=== PATIENT | female | born 1950 | race Caucasian/White ===

== ENCOUNTER 2019-12-25 12:07 | Outpatient (CLI) | payer OTHER, SELFPAY ==
[2019-12-25 12:26] LABS: Basophils Absolute Auto 0.06 K/mm3 (0.00-0.10); Basophils Percent Auto 0.8 % (0.0-1.0); Eosinophils Absolute Auto 0.16 K/mm3 (0.02-0.50); Eosinophils Percent Auto 2.1 % (1.0-6.0); Hematocrit 41.2 % (35.0-42.0); Hemoglobin 13.7 g/dL (11.7-13.8); Immature Granulocyte Absolute 0.02 K/mm3 (0.00-0.00); Immature Granulocyte Percent A 0.3 % (0.0-0.0); Lymphocytes Absolute Auto 2.23 K/mm3 (1.10-4.50); Lymphocytes Percent Auto 28.9 % (18.0-42.0); Mean Corpuscular HGB Conc 33.3 g/dL (32.0-36.0); Mean Corpuscular Hemoglobin 29.8 pg (27.0-31.0); Mean Corpuscular Volume 89.6 fL (78.0-102.0); Mean Platelet Volume 9.2 fl (9.2-11.8); Monocytes Absolute Auto 0.52 K/mm3 (0.10-0.90); Monocytes Percent Auto 6.7 % (2.0-11.0); Neutrophils Absolute Auto 4.7 K/mm3 (1.7-7.2); Neutrophils Percent Auto 61.2 % (50.0-70.0); Platelet Count Result 243 K/mm3 (150-420); Red Cell Distribution Width 13.4 % (11.6-14.4); White Blood Count 7.7 K/mm3 (4.8-10.8)
[2019-12-25 13:34] LABS: Alanine Aminotransferase 32 U/L (14-59); Albumin Level 4.2 g/dL (3.4-5.0); Alkaline Phosphatase 72 U/L (46-116); Anion Gap 15.1 mmol/L (7-16); Aspartate Amino Transferase 20 U/L (15-37); Bilirubin,Total 0.3 mg/dL (0.00-1.00); Blood Urea Nitrogen 17 mg/dL (7-18); Calcium 9.6 mg/dL (8.5-10.1); Carbon Dioxide 26 mmol/L (21-32); Chloride 104 mmol/L (98-108); Cholesterol 278 mg/dL (0-200); Estimated Glomerular Filt Rate > 60; Glucose 93 mg/dL (70-99); HDL Direct 50 mg/dL (40-60); LDL Cholesterol Calculated 192 mg/dL (<130); Osmolality Calculated 293 mOsm/kg (285-295); Potassium 4.1 mmol/L (3.5-5.1); Sodium 141 mmol/L (136-145); Total Protein 7.8 g/dL (6.4-8.2); Triglycerides 181 mg/dL (0-150)
[2019-12-25 13:38] LABS: Thyroid Stimulating Hormone Reflex 2.09 u/IU/mL (0.36-3.74)
== END 2019-12-25 12:08 | disposition home or self-care (01) ==
LOC: CHSLAB 12:12
PROVIDERS: PCP Family Medicine; Visit Provider Family Medicine
DX: E66.9 Obesity, unspecified (principal); Z00.00 Encounter for general adult medical examination without abnormal findings
CPT/HCPCS: 36415; 80053; 80061; 84443; 85025

== ENCOUNTER 2019-12-28 09:44 | Outpatient (CLI) | payer OTHER, SELFPAY ==
--- NOTE | ~2019-12-28 | XR_ITS ---
EXAMINATION: XR elbow RT min 3V DATE: 12/28/2019 10:05 INDICATION: Right elbow pain post pulling injury TECHNIQUE: Anteroposterior, two oblique and lateral views of the right elbow were obtained. COMPARISON: None. FINDINGS: Alignment is normal. No fracture or joint effusion. 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 Soft tissues are unremarkable. IMPRESSION: 1. Mild osteoarthritis at the right elbow. No right elbow joint effusion or acute osseous abnormality . Reviewed, dictated and finalized at location A. IMPRESSION: 1. Mild osteoarthritis at the right elbow. No right elbow joint effusion or acu te osseous abnormality.
== END 2019-12-28 09:45 | disposition home or self-care (01) ==
PROVIDERS: PCP Nurse Practitioner Family; Visit Provider Nurse Practitioner Family
DX: M25.521 Pain in right elbow (principal)
CPT/HCPCS: 73080

== ENCOUNTER 2020-01-19 13:38 | Outpatient (CLI) | payer OTHER, SELFPAY ==
--- NOTE | ~2020-01-19 | MR_ITS ---
EXAMINATION: MR elbow RT wo con DATE: 01/19/2020 16:30 INDICATION: Right elbow pain TECHNIQUE: Magnetic resonance imaging (MRI) of the right elbow was performed without intravenous cont rast. Sequences included coronal, axial, and sagittal PD-weighted FS FSE and coronal, axial, and sagi ttal PD-weighted FSE. COMPARISON: None FINDINGS: Osseous/other: Normal alignment. Normal marrow signal with no marrow edema, fracture, osteochondral lesion or abnor mal marrow replacing process. Tendons: Triceps, biceps brachii and brachialis tendons are normal. Common flexor tendon wad is normal. Mild tendinopathy and partial-thickness tear along the deep margin of the lateral epicondylar origin of th e common extensor tendon wad. Ligaments: There is a tear along the humeral side of the radial collateral ligament. The lateral ulnar collatera l and annular ligament components of the lateral collateral ligament complex remain intact. The media l collateral ligament plexus is normal. Cubital tunnel: Cubital tunnel is unremarkable with normal signal and caliber of the ulnar nerve. Fluid: Physiologic amount of fluid the elbow joint. IMPRESSION: 1. Tear of the radial collateral ligament component of the lateral collateral ligament complex. 2. Mild tendinopathy and mild partial-thickness tear along the deep margin of the lateral epicondylar origin of the common extensor tendon wad. Reviewed, dictated and finalized at location A. IMPRESSION: 1. Tear of the radial collateral ligament component of the lateral collateral l igament complex. 2. Mild tendinopathy and mild partial-thickness tear along the deep margin of t he lateral epicondylar origin of the common extensor tendon wad.
== END 2020-01-19 13:39 | disposition home or self-care (01) ==
LOC: ANHIMG 13:44
PROVIDERS: PCP Nurse Practitioner Family; Visit Provider Nurse Practitioner Family
DX: M25.521 Pain in right elbow (principal); S53.431A Radial collateral ligament sprain of right elbow, initial encounter; M77.11 Lateral epicondylitis, right elbow
CPT/HCPCS: 73221

== ENCOUNTER 2020-02-09 09:03 | Outpatient (RCR) | payer OTHER, SELFPAY ==
--- NOTE | 2020-02-09 10:09 | OTOPEVAL ---
Thank you for referring Iliana Palm to [facility]. Please review, sign, date and return this plan of care [facility]. I agree with and certify that the following plan of care is medically necessary. Referring Physician Date Admitting Provider: Attending Provider: Taniya Ibrahim NP Referring Provider: *OT Outpatient Evaluation Start: 02/09/20 08:13 Freq: Status: Active Protocol: Document 02/09/20 08:43 [facility] [place] (Rec: 02/09/20 10:09 [facility] [id number]) Therapy Assessment Status Assessment Status Assessment Status Evaluation Outpatient Past Medical History Past Medical History No Past Medical/Surgical History Patient/Family Denies Significant Past Medical/ Surgical History Evaluation Information Problem Diagnosis R elbow pain, decreased ROM & pain Onset 12/14/19 Cause R ligament and tendon tear Subjective Information Patient reports that she tore Query Text:As Reported By Patient/ a ligament and tendon in her R Family elbow on 12/14/19 when she was [place]. Patient reports that she had an X-ray and an MRI. Patient reports significant pain in the R arm. Patient reports that she is unable to sleep in her bed for the last 8-9 weeks and is sleeping in her recliner resulting in back and shoulder pain. Patient reports that it is very difficult to perform household duties, including cleaning, etc. 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 She is able to perform self care tasks with significant pain. Patient states, I am able to move and use my arm but it just hurts. Patient feels as if there has been no improvements with pain from the initial injury. Patient arrives to OT holding onto a pillow at her side with elbow bent at 90 degrees. Quick DASH score: 77.3% Diagnostic Tests X-Rays For This Problem
--- NOTE | 2020-02-10 07:32 | OTOPEVAL ---
Thank you for referring Iliana Palm to [facility]. Please review, sign, date and return this plan of care [facility]. I agree with and certify that the following plan of care is medically necessary. Referring Physician Date Admitting Provider: Attending Provider: Taniya Ibrahim NP Referring Provider: *OT Outpatient Evaluation Start: 02/09/20 08:13 Freq: Status: Active Protocol: Document 02/09/20 08:43 [facility] [place] (Rec: 02/09/20 10:09 [facility] [place] [id number]) Therapy Assessment Status Assessment Status Assessment Status Evaluation Outpatient Past Medical History Past Medical History No Past Medical/Surgical History Patient/Family Denies Significant Past Medical/ Surgical History Evaluation Information Problem Diagnosis R elbow pain, decreased ROM & pain Onset 12/14/19 Cause R ligament and tendon tear Subjective Information Patient reports that she tore Query Text:As Reported By Patient/ a ligament and tendon in her R Family elbow on 12/14/19 when she was opening a large gate on her [place]. Patient reports that she had an X-ray and an MRI. Patient reports significant pain in the R arm. Patient reports that she is unable to sleep in her bed for the last 8-9 weeks and is sleeping in her recliner resulting in back and shoulder pain. Patient reports that it is very difficult to perform household duties, including cleaning, etc. 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 She is able to perform self care tasks with significant pain. Patient states, I am able to move and use my arm but it just hurts. Patient feels as if there has been no improvements with pain from the initial injury. Patient arrives to OT holding onto a pillow at her side with elbow bent at 90 degrees. Quick DASH score: 77.3% Diagnostic Tests X-Rays For This Problem
== END 2020-07-11 23:59 | disposition home or self-care (01) ==
LOC: CHSOT 09:03
PROVIDERS: PCP Nurse Practitioner Family; Visit Provider Nurse Practitioner Family
DX: S46.911A Strain of unspecified muscle, fascia and tendon at shoulder and upper arm level, right arm, initial encounter (principal)
CPT/HCPCS: 97014; 97035; 97110; 97140; 97165; 97542; G0283

== ENCOUNTER 2024-08-17 12:00 | Outpatient (CLI) | payer OTHER, SELFPAY ==
[2024-08-17 12:24] LABS: Basophils Absolute Auto 0.05 K/mm3 (0.00-0.10); Basophils Percent Auto 0.7 % (0.0-1.0); Eosinophils Absolute Auto 0.08 K/mm3 (0.02-0.50); Eosinophils Percent Auto 1.2 % (1.0-6.0); Hematocrit 39.6 % (35.0-42.0); Immature Granulocyte Absolute 0.03 K/mm3 (0.00-0.00); Immature Granulocyte Percent A 0.4 % (0.0-0.0); Lymphocytes Absolute Auto 1.93 K/mm3 (1.10-4.50); Lymphocytes Percent Auto 28.6 % (18.0-42.0); Mean Corpuscular HGB Conc 32.8 g/dL (32-36); Mean Corpuscular Hemoglobin 29.1 pg (27.0-31.0); Mean Corpuscular Volume 88.6 fL (78.0-102.0); Mean Platelet Volume 8.7 fl (9.2-11.8); Monocytes Absolute Auto 0.44 K/mm3 (0.10-0.90); Monocytes Percent Auto 6.5 % (2.0-11.0); Neutrophils Absolute Auto 4.23 K/mm3 (1.70-7.20); Neutrophils Percent Auto 62.6 % (50.0-70.0); Platelet Count Result 246 K/mm3 (150-420); Red Blood Count 4.47 M/mm3 (4.20-5.40); Red Cell Distribution Width 13.4 % (11.6-14.4); White Blood Count 6.8 K/mm3 (4.8-10.8)
[2024-08-17 12:34] LABS: Add Urine Microscopic? YES; Appearance Urine Clear (Clear); Bilirubin Urine Negative (Negative); Blood Urine Negative (Negative); Color Urine Light Yellow (Yellow); Glucose Urine UA Negative (Negative); Ketones Urine Negative (Negative); Leukocyte Esterase Ur Trace LEU/UL (Negative); Nitrate Urine Negative (Negative); Protein Urine Negative (Negative); Specific Grav Ur <= 1.005 (1.010-1.020); Urobilinogen Urine 0.2 mg/dL (0.2-1.0); pH Urine 5.5 (5.0-8.0)
--- OUTSIDE RECORDS SUMMARY | 2024-08-17 12:47 | XMS_ITS | Clinical Summary ---
Author Organization [facility] Address [address] [place] [address]. [place], [place] [id number] [place] [id number] Care Team Providers Care [employer] Developer Name Role Phone Unavailable Primary Care Provider Unavailabl e Social History Tobacco Use Types Packs/Day Years Used Date Smoking Tobacco: Never Assessed Comments Unknown Sex and Gender Information Value Date Recorded Sex Assigned at Not on file Legal Sex Female 9:53 PM [employer]NA[employer] Gender Identity Not on file Sexual Orientation Not on file Plan of Treatment Health Maintenance Due Date Last Done Comments Colorectal Cancer Screening Colonoscopy (10 Years) 1950 Hepatitis C 1966 DTaP, Tdap and Td Vaccines ( 1 - Tdap) 10/03/1967 Zoster Vaccines (1 of 2) 1998 Dexa Scan (General) 2013 Pneumococcal Vaccine: 65+ Ye ars (1 of 1 - PCV) 2013 RSV Immunization or 60+ Years (1 - 1-dose 75+ series) 10/03/2023 COVID-19 Vaccine ( - 2023-2 5 season) 2024 Influenza Adult (#1) 2024 Meningococcal B Vaccine Aged Out No l onger eligible based on patient's age to complete this topic Meningococcal Vaccine Aged Out No yvette jerry eligible based on patient's age to complete this topic RSV Immunizations Under 20 Months Aged Out No longer eligible based on patient's age to complete this topic
[2024-08-17 13:00] LABS: Bacteria Urine Rare /hpf; RBC Urine None seen /hpf (0-2); Squamous Epithelial Cell Urine Rare /hpf (Few); WBC Urine 0-3 /hpf (0-3)
[2024-08-17 13:10] LABS: Alanine Aminotransferase 23 U/L (14-59); Albumin Level 4.1 g/dL (3.4-5.0); Alkaline Phosphatase 87 U/L (46-116); Anion Gap 15 mmol/L (4-12); Aspartate Amino Transferase 13 U/L (15-37); Bilirubin,Total 0.3 mg/dL (0.00-1.00); Blood Urea Nitrogen 17 mg/dL (7-18); Carbon Dioxide 25 mmol/L (21-32); Chloride 103 mmol/L (98-108); Cholesterol 295 mg/dL (0-200); Estimated Glomerular Filt Rate > 60; Glucose 95 mg/dL (70-99); HDL Direct 54 mg/dL (40-60); Iron 45 ug/dL (50-170); LDL Cholesterol Calculated 202 mg/dL (<130); Magnesium 1.8 mg/dL (1.8-2.4); Osmolality Calculated 297 mOsm/kg (285-295); Potassium 4.4 mmol/L (3.5-5.1); Sodium 143 mmol/L (136-145); Total Protein 7.4 g/dL (6.4-8.2); Triglycerides 195 mg/dL (0-150); Vitamin B12 671 pg/mL (193-986)
[2024-08-19 01:34] LABS: Vitamin D 25 Hydroxy 29 ng/mL (30-100)
== END 2024-08-17 12:01 | disposition home or self-care (01) ==
LOC: CHSLAB 12:04
PROVIDERS: PCP Nurse Practitioner Family; Visit Provider Nurse Practitioner Family
DX: R42 Dizziness and giddiness (principal); Z79.899 Other long term (current) drug therapy; E53.8 Deficiency of other specified B group vitamins; Z13.6 Encounter for screening for cardiovascular disorders; E78.5 Hyperlipidemia, unspecified; R35.0 Frequency of micturition
CPT/HCPCS: 36415; 80053; 80061; 81001; 82306; 82607; 83540; 83735; 85025